=== PATIENT | male | born 1955 | race Caucasian/White ===

== ENCOUNTER 2018-02-07 09:21 | Emergency (ER) | payer OTHER ==
--- NOTE | 2018-02-07 09:48 | EDM.PDOC ---
ED HPI GENERAL MEDICAL PROBLEM - General Chief Complaint: Head Injury Stated Complaint: HEAD INJURY,LEFT SHOULDER PAIN Time Seen by Provider: 02/07/18 09:43 Source of Information: Reports: Patient History Limitations: Reports: No Limitations - History of Present Illness INITIAL COMMENTS - FREE TEXT/NARRATIVE: Patient slipped while playing frisbee, struck back of head against tree root. No LOC, but was dazed and did not recognize son x 3-4 min after injury. Complains of headache and neck pain. Also struck left elbow, complains of mild pain to this area. Td UTD. 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 Cardiovascular History: Reports: Hypertension Gastrointestinal History: Reports: Hepatitis (C) Musculoskeletal History: Reports: Other (See Below) - Infectious Disease History Infectious Disease History: Reports: Hepatitis C - Past Surgical History GI Surgical History: Reports: Appendectomy, Other (See Below) Other GI Surgeries/Procedures: state sthat he had colon surgery. Musculoskeletal Surgical History: Reports: Other (See Below) Other Musculoskeletal Surgeries/Procedures:: heel surgery. Social & Family History - Family History Family Medical History: Noncontributory - Tobacco Use Smoking Status *Q: Current Every Day Smoker Tobacco Use Within Last Twelve Months: Cigarettes ED ROS GENERAL - Review of Systems Review Of Systems: ROS reveals no pertinent complaints other than HPI. ED EXAM, HEAD INJURY - Physical Exam Exam: See Below Exam Limited By: No Limitations General Appearance: Alert, WD/WN, No Apparent Distress Head: Normocephalic, Scalp Abrasions (occipital). No: Palma's Sign Nexus Criteria: No: Posterior, Midline Cervical Tenderness Eyes: Bilateral Eye: EOMI, PERRL Ears: Normal External Exam Nose: Normal Inspection Throat/Mouth: Normal Inspection Neck: Non-Tender Respiratory: No Respiratory Distress, Lungs Clear, Normal Breath Sounds Cardiovascular: Regular Rate, Rhythm, No Murmur Extremities: Other (mild tenderness and abrasion left elbow) Neurologic: No Motor/Sensory Deficits, Alert, Normal Mood/Affect, Oriented x 3 - [place] Coma Score Best Eye Response (Malik): (4) Open Spontaneously Best Verbal Response ([place]): (5) Oriented Best Motor Response (Malik): (6) Obeys Commands [place] Total: 15 Course - Vital Signs Last Recorded V/S: Last Vital Signs Temp 35.7 C 02/07/18 09:30 Pulse 55 L 02/07/18 09:30 Resp 16 02/07/18 09:30 BP 125/77 02/07/18 09:30 Pulse Ox 100 02/07/18 09:30 - Orders/Labs/Meds Orders: Active Orders 24 hr Category Date Time Status Cervical Spine wo Cont [CT] Stat Exams 02/07/18 09:40 Taken Elbow 2V Lt [CR] Stat Exams 02/07/18 09:40 Taken Head wo Cont [CT] Stat Exams 02/07/18 09:40 Taken - Radiology Interpretation Free Text/Narrative:: Head CT w/o contrast: No acute process (per Dr. Mcgill). C-spine CT: No acute process (per Dr. Mcgill). Left Elbow XR: No acute process (per Dr. Mcgill). Departure - Departure Time of Disposition: 10:27 Disposition: Home, Self-Care 01 Condition: Good Clinical Impression: Concussion with no loss of consciousness, Abrasion, elbow w/o infection - Discharge Information *PRESCRIPTION DRUG MONITORING PROGRAM REVIEWED*: No *COPY OF PRESCRIPTION DRUG MONITORING REPORT IN PATIENT SHAKIRA: Not Applicable Instructions: Concussion, Adult, [id number], Abrasion, [id number] Referrals: PCP,Not In Area [Primary Care Provider] - Forms: ED Department Discharge Additional Instructions: Apply antibiotic ointment to abrasions twice a day. Return to the ER if symptoms worsen. - My Orders Last 24 Hours: My Active Orders 02/07/18 09:40 Cervical Spine wo Cont [CT] Stat Elbow 2V Lt [CR] Stat Head wo Cont [CT] Stat - Assessment/Plan Last 24 Hours: My Active Orders 02/07/18 09:40 Cervical Spine wo Cont [CT] Stat Elbow 2V Lt [CR] Stat Head wo Cont [CT] Stat
--- NOTE | 2018-02-07 11:12 | CT ---
INDICATION: Fell, hit back of head on left, confused. CT HEAD WITHOUT CONTRAST: Serial contiguous 2.5 and 5 mm sections were obtained through the brain without contrast, 02/07/2018 - no comparisons. Total exam DLP = 950.31 mGy-cm. The paranasal sinuses appear to be well-aerated. The mastoid air cells were well-aerated. No cranial fracture site is noted. Internal carotid artery calcifications are noted to a moderate degree. Asymmetry of the lateral ventricles is noted, the left being larger. This likely represents a normal variant. No abnormal areas of density were identified - no bleeding site or hematoma was noted - no acute intracranial abnormality was seen. IMPRESSION: 1. No acute intracranial abnormality is identified. 2. Cerebrovascular disease with internal carotid artery calcifications. 3. Asymmetry of lateral ventricles, likely a normal variant with the left being larger. MTDD
--- NOTE | 2018-02-07 11:36 | CT ---
INDICATION: Trauma. CT CERVICAL SPINE: Spiral 2.5 mm axial sections were obtained through the cervical spine with sagittal and coronal reconstructions. Total exam DLP = 416.72 mGy-cm. The odontoid appeared to be intact with multiple cystic changes, likely on a degenerative basis, although the atlantoodontoid joint space appeared to be fairly normal. Degenerative changes are noted with minimal subchondral cystic changes at the end plates of C2-3, C3-4, and C4-5 with hypertrophic changes at the uncinate joints of C3-4, C4-5, most severe on the right at C4-5 with subchondral cystic changes also more severe in that area. They are also seen, however, on the left at C4-5. Minimal hypertrophic changes are noted at the uncinate joints of C5-6. There is narrowing of the disk space at C4-5 with grade 1 retrolisthesis at that level. The neural foramen at that level is narrowed most severely on the right but to a lesser extent on the left. Overall bone density appeared to be normal. Prevertebral space appeared to be normal. A definite acute fracture or dislocation was not seen. There is a dextroconvex scoliosis of mild degree of the upper cervical spine. Emphysematous changes are noted in the upper lungs included on the examination. IMPRESSION: 1. No acute fracture or dislocation. 2. Degenerative changes and disk disease, as noted above, with narrowed neural foramina, mostly at C4-5, where degenerative disk disease is relatively prominent with retrolisthesis, grade 1. Degenerative changes are also suggested at the atlantoodontoid joint with extensive subchondral cystic changes at the odontoid. Report was called to Dr. Smith at 1025 hours on 02/07/2018. [facility]
--- NOTE | 2018-02-07 11:39 | CR ---
INDICATION: Trauma. LEFT ELBOW: Frontal and lateral views of the left elbow revealed no evidence of an acute fracture, dislocation, or other acute bone or joint abnormality. A very minimal degree of degenerative change may be present at the medial elbow joint compartment. IMPRESSION: No acute fracture, dislocation, or joint effusion is suggested. Report was called to Dr. Smith on 02/07/2018 at 1025 hours. [facility]
== END 2018-02-07 10:34 | disposition home or self-care (01) ==
LOC: FB.ED 09:21
DX: S06.0X0A Concussion without loss of consciousness, initial encounter (principal); S00.01XA Abrasion of scalp, initial encounter; S50.312A Abrasion of left elbow, initial encounter; I10 Essential (primary) hypertension; F17.210 Nicotine dependence, cigarettes, uncomplicated; W14.XXXA Fall from tree, initial encounter
CPT/HCPCS: 70450; 72125; 73070-LT; 99283; 99284